=== PATIENT | female | born 1990 | race African-American/Black ===

== ENCOUNTER 2019-10-09 07:40 | Emergency (ER) | payer MEDICAID ==
[~2019-10-09] VITALS: Ht 165.1 cm; Wt 61.2 kg
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
[~2019-10-09 07:40] MED LIST: BACTRIM DS TAB1 EAC1 ORAL; NITROFURANTOIN100 M2 ORAL
--- NOTE | 2019-10-09 07:40 | NUR ---
ED Nurse Note: No open wound or laceration present
[2019-10-09 07:41] VITALS: BP 140/100
--- NOTE | 2019-10-09 07:46 | NUR ---
ED Nurse Note: [employer] at bedside
[2019-10-09] MEDS ORDERED: Tylenol #3 tab (300mg/30mg) ONE ×2 (07:48→07:49)
--- NOTE | 2019-10-09 07:52 | NUR ---
ED Nurse Note: [employer] no longer at bedside
--- NOTE | 2019-10-09 07:54 | NUR ---
ED Nurse Note: Pt taken to CT on wheel chair.
[2019-10-09] MEDS ORDERED: Tylenol #3 tab (300mg/30mg) PO ONE (08:00)
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
--- NOTE | 2019-10-09 08:51 | NUR ---
ED Nurse Note: Pt resting in bed, NAD. Spoke with ERMD about CT results, waiting for further orders
[2019-10-09] MEDS ORDERED: TYLENOL EXTRA500 MG ORAL (08:53)
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
--- NOTE | 2019-10-09 09:07 | NUR ---
ER DISCHARGE NOTE: Patient is cleared to be discharged per ERMD, pt is aox4, on room air, with stable vital signs. pt was given dc and prescription instructions, pt was able to verbalize understanding, pt id band removed. pt is able to ambulate with steady gait. pt took all belongings. pt given a shirt due to not having one upon arrival
[2019-10-09 09:08] VITALS: BP 132/89
== END 2019-10-09 09:07 | disposition home or self-care (01) ==
LOC: EDBD 07:40 → EMR 07:50
DX: S00.83XA Contusion of other part of head, initial encounter (principal); S09.90XA Unspecified injury of head, initial encounter; Y09 Assault by unspecified means
CPT/HCPCS: 70450; 70486; Z7502; 99284